=== PATIENT | female | born 1995 | race African-American/Black ===

== ENCOUNTER 2016-08-15 22:06 | Emergency (ER) | payer MEDICAID ==
[2016-08-15 23:31] LABS: Bilirubin Negative (Negative); Blood, Urine Moderate (Negative); Glucose, Urine (Dipstick) Negative (Negative); Ketone, Urine Negative (Negative); Nitrite Negative (Negative); Protein, Urine (Dipstick) Negative (Neg-Trace); Urobilinogen 0.2 mg/dL (0.2-1.0)
[2016-08-15] MEDS ORDERED: Lorazepam 1 MG TAB ONE (23:33)
[2016-08-15 23:37] LABS: Bacteria/HPF 1+ HPF (None Seen); WBC/HPF 0-3 HPF (0-3); Yeast-All Forms 2+ HPF (None Seen)
== END 2016-08-15 23:52 | disposition home or self-care (01) ==
LOC: NAV ERS 22:06
DX: F41.9 Anxiety disorder, unspecified (principal); N39.0 Urinary tract infection, site not specified; K21.9 Gastro-esophageal reflux disease without esophagitis; F17.210 Nicotine dependence, cigarettes, uncomplicated; Z79.899 Other long term (current) drug therapy
CPT/HCPCS: 81003; 81015; 81025; 93005

== ENCOUNTER 2016-10-16 23:21 | Emergency (ER) | payer MEDICAID | END 2016-10-17 00:05 | disposition home or self-care (01) | LOC: NAV ERS 23:21 | DX: R07.9 Chest pain, unspecified (principal); F41.9 Anxiety disorder, unspecified; K21.9 Gastro-esophageal reflux disease without esophagitis; E66.9 Obesity, unspecified; F32.9 Major depressive disorder, single episode, unspecified; F17.210 Nicotine dependence, cigarettes, uncomplicated; Z79.899 Other long term (current) drug therapy | CPT/HCPCS: 99283 ==

== ENCOUNTER 2017-02-24 14:15 | Emergency (ER) | payer MEDICAID, OTHER ==
[2017-02-24 15:08] LABS: Pregu Control Background? CLEAR/WHITE (CLR/WHITE); Pregu Control Bar Appear? YES (CONTROL BAR)
[2017-02-24 15:10] LABS: Pregnancy Test - Urine (BHCG) Negative (NEGATIVE)
[2017-02-24] MEDS ORDERED: Mag-Al Plus 1200 MG/1200 MG/120 MG/30 ML UDCUP ONE (15:13)
[2017-02-24] MEDS ORDERED: Lidocaine Viscous Sol 2% 15 ml UD Cup ONE (15:13)
== END 2017-02-24 16:14 | disposition home or self-care (01) ==
LOC: NAV ERS 14:15
DX: S27.818A Other injury of esophagus (thoracic part), initial encounter (principal); K21.0 Gastro-esophageal reflux disease with esophagitis; G43.909 Migraine, unspecified, not intractable, without status migrainosus; E66.09 Other obesity due to excess calories; F41.9 Anxiety disorder, unspecified; F32.9 Major depressive disorder, single episode, unspecified; F17.210 Nicotine dependence, cigarettes, uncomplicated
CPT/HCPCS: 81025; 99284

== ENCOUNTER 2017-03-07 21:59 | Emergency (ER) | payer OTHER ==
[2017-03-07] MEDS ORDERED: Famotidine 20 MG TAB ONE (22:21)
== END 2017-03-07 22:26 | disposition home or self-care (01) ==
LOC: NAV ERS 21:59
DX: K21.9 Gastro-esophageal reflux disease without esophagitis (principal); F32.9 Major depressive disorder, single episode, unspecified; F41.9 Anxiety disorder, unspecified; F17.210 Nicotine dependence, cigarettes, uncomplicated; Z79.899 Other long term (current) drug therapy
CPT/HCPCS: 99283

== ENCOUNTER 2017-03-09 21:47 | Emergency (ER) | payer OTHER ==
--- NOTE | 2017-03-09 23:06 | RAD ---
CHEST PA AND LATERAL 03/09/17 HISTORY: 21-year-old female with dyspnea, epigastric discomfort and heartburn. COMPARISON: 09/25/12. FINDINGS: The heart size is normal. The lungs are clear. IMPRESSION: No acute intrathoracic disease. POS: [facility]
--- NOTE | 2017-03-09 23:09 | RAD ---
SOFT TISSUE NECK TWO VIEWS: 03/09/17 HISTORY: 21-year-old female with patient describing that something is stuck in the neck for over a week with concern for foreign body. There is a normal appearing epiglottis. Subglottic trachea shows no evidence of transverse narrowing . No evidence for an opaque foreign body. No retropharyngeal soft tissue swelling. IMPRESSION: Unremarkable soft tissue neck. POS: [facility]
[2017-03-09] MEDS ORDERED: Sucralfate 1 GM TAB PO SCH (23:45)
== END 2017-03-10 00:07 | disposition home or self-care (01) ==
LOC: NAV ERS 21:47
DX: K20.9 Esophagitis, unspecified (principal); K21.9 Gastro-esophageal reflux disease without esophagitis; G43.909 Migraine, unspecified, not intractable, without status migrainosus; E66.9 Obesity, unspecified; F32.9 Major depressive disorder, single episode, unspecified; F41.9 Anxiety disorder, unspecified; F17.210 Nicotine dependence, cigarettes, uncomplicated; Z79.899 Other long term (current) drug therapy
CPT/HCPCS: 70360; 71020; 93005

== ENCOUNTER 2017-07-02 19:13 | Emergency (ER) | payer OTHER ==
[2017-07-02] MEDS ORDERED: Lidocaine Viscous Sol 2% 15 ml UD Cup ONE (20:18)
[2017-07-02] MEDS ORDERED: Mag-Al Plus 1200 MG/1200 MG/120 MG/30 ML UDCUP ONE (20:19)
== END 2017-07-02 21:30 | disposition home or self-care (01) ==
LOC: NAV ERS 19:13
DX: K29.00 Acute gastritis without bleeding (principal); K21.9 Gastro-esophageal reflux disease without esophagitis; G43.909 Migraine, unspecified, not intractable, without status migrainosus; E66.9 Obesity, unspecified; F41.9 Anxiety disorder, unspecified; F32.9 Major depressive disorder, single episode, unspecified; F17.210 Nicotine dependence, cigarettes, uncomplicated; Z79.899 Other long term (current) drug therapy
CPT/HCPCS: 93005

== ENCOUNTER 2017-07-11 18:47 | Emergency (ER) | payer OTHER ==
[2017-07-11] MEDS ORDERED: Famotidine 20 MG TAB ONE (19:11)
== END 2017-07-11 19:20 | disposition home or self-care (01) ==
LOC: NAV ERS 18:47
DX: K21.9 Gastro-esophageal reflux disease without esophagitis (principal); F41.9 Anxiety disorder, unspecified; G43.909 Migraine, unspecified, not intractable, without status migrainosus; E66.9 Obesity, unspecified; F32.9 Major depressive disorder, single episode, unspecified; F17.210 Nicotine dependence, cigarettes, uncomplicated; Z79.899 Other long term (current) drug therapy
CPT/HCPCS: 99283

== ENCOUNTER 2017-08-14 18:37 | Emergency (ER) | payer OTHER ==
[2017-08-14] MEDS ORDERED: Ibuprofen 800 MG TAB ONE (19:00)
== END 2017-08-14 19:52 | disposition home or self-care (01) ==
LOC: NAV ERS 18:37
DX: B34.9 Viral infection, unspecified (principal); K59.00 Constipation, unspecified; K21.9 Gastro-esophageal reflux disease without esophagitis; E66.01 Morbid (severe) obesity due to excess calories; F32.9 Major depressive disorder, single episode, unspecified; F41.9 Anxiety disorder, unspecified; G43.909 Migraine, unspecified, not intractable, without status migrainosus; F17.210 Nicotine dependence, cigarettes, uncomplicated; Z79.899 Other long term (current) drug therapy; Z71.6 Tobacco abuse counseling
CPT/HCPCS: 87081; 87430; 87804; 99406

== ENCOUNTER 2017-08-27 19:52 | Emergency (ER) | payer OTHER | END 2017-08-27 20:18 | disposition home or self-care (01) | LOC: NAV ERS 19:52 | DX: F41.9 Anxiety disorder, unspecified (principal); I10 Essential (primary) hypertension; K21.9 Gastro-esophageal reflux disease without esophagitis; G43.909 Migraine, unspecified, not intractable, without status migrainosus; F32.9 Major depressive disorder, single episode, unspecified; F17.210 Nicotine dependence, cigarettes, uncomplicated; Z79.899 Other long term (current) drug therapy | CPT/HCPCS: 99284 ==

== ENCOUNTER 2017-10-24 18:17 | Emergency (ER) | payer OTHER ==
[2017-10-24 19:10] LABS: Pregnancy Test - Urine (BHCG) Negative (Negative); Pregu Control Background? CLEAR/WHITE (CLR/WHITE); Pregu Control Bar Appear? YES (CONTROL BAR); Specific Gravity 1.028 (1.002-1.036)
[2017-10-24 19:15] LABS: Bilirubin Small (Negative); Blood, Urine Large (Negative); Glucose, Urine (Dipstick) Negative (Negative); Leukocyte Trace (Negative); Nitrite Negative (Negative); Protein, Urine (Dipstick) 100 mg/dL (Neg-Trace); Specific Gravity, Urine 1.025 (1.005-1.030)
[2017-10-24 19:19] LABS: Clarity Cloudy (Clear)
[2017-10-24 19:33] LABS: Bacteria/HPF 2+ HPF (None Seen); RBC/HPF GREATER THAN 50-TNTC HPF (0-3); WBC/HPF 0-3 HPF (0-3)
[2017-10-24] MEDS ORDERED: Ketorolac Tromethamine 30 MG/ML VIAL ONE (19:34)
[2017-10-24] MEDS ORDERED: Sodium Chloride 0.9% 1,000 ML ONE (19:34)
[2017-10-24] MEDS ORDERED: Ondansetron HCl/PF 4 MG/2 ML Vial ONE (19:34)
[2017-10-24] MEDS ORDERED: Acetaminophen 500 MG TAB ONE (19:34)
[2017-10-24 19:58] LABS: ALT (SGPT) 18 U/L (8-55); AST (SGOT) 18 U/L (5-34); Albumin 3.3 g/dL (3.5-5.0); Alkaline Phosphatase 73 U/L (40-150); Anion Gap 12 mmol/L (10-20); BUN (Urea Nitrogen) 8 mg/dL (7.0-18.7); Bilirubin, Total 0.4 mg/dL (0.2-1.2); Calc. Creatinine Clearance 0 mL/min (70-130); Calcium 8.4 mg/dL (7.8-10.44); Carbon Dioxide 24 mmol/L (22-29); Chloride 104 mmol/L (98-107); Estimated GFR-MDRD Greater than 90; Globulin 3.6 g/dL (2.4-3.5); Glucose 92 mg/dL (70-105); Potassium 3.5 mmol/L (3.5-5.1); Protein, Total 6.9 g/dL (6.0-8.3); Sodium 136 mmol/L (136-145)
[2017-10-24 20:01] LABS: #Basophils 0.1 thou/uL (0.0-0.2); #Lymphocytes 0.9 thou/uL (1.20-3.40); #Monocytes 0.3 thou/uL (0.11-0.59); %Basophils 1.4 % (0.0-1.0); %Eosinophils 0.2 % (0.0-10.0); %Lymphocytes 16.3 % (21.0-51.0); %Monocytes 6.3 % (0.0-10.0); %Neutrophils 75.8 % (42.0-75.0); Hemoglobin 11.5 g/dL (12.0-16.0); Mean Corpuscular HGB CONC 30.4 g/dL (32.0-36.0); Mean Corpuscular Volume 78.7 fl (81.0-99.0); Platelet Count 408 thou/uL (130-400); RBC Distribution Width 13.5 % (11.5-14.5); Red Blood Cell (RBC) Count 4.79 mill/uL (4.20-5.40); White Blood Cell (WBC) Count 5.3 thou/uL (4.8-10.8)
[2017-10-24] MEDS ORDERED: Metoclopramide HCl 10 MG/2 ML VIAL ONE (20:46)
--- NOTE | 2017-10-24 20:48 | RAD ---
CHEST TWO VIEWS: 10/24/17 COMPARISON: 03/09/17 HISTORY: Loss of consciousness. FINDINGS: lateral view is suboptimal due to patient body habitus. Based on the PA projection, no consolidation or mass. No pleural effusion or pneumothorax Normal cardiac silhouette. IMPRESSION: No acute cardiopulmonary process. Suboptimal lateral projection. POS: [facility]
== END 2017-10-24 21:18 | disposition home or self-care (01) ==
LOC: NAV ERS 18:17
DX: E86.0 Dehydration (principal); B34.9 Viral infection, unspecified; K21.9 Gastro-esophageal reflux disease without esophagitis; G43.909 Migraine, unspecified, not intractable, without status migrainosus; F41.9 Anxiety disorder, unspecified; F17.210 Nicotine dependence, cigarettes, uncomplicated; Z79.899 Other long term (current) drug therapy
CPT/HCPCS: 71046; 80053; 81003; 81015; 81025; 83605; 85025; 87077; 87086; 87186; 87804; 93005; 96361; 96365; 96375; J1885; J2405; J2765; J7050

== ENCOUNTER 2017-10-28 03:50 | Emergency (ER) | payer OTHER ==
[2017-10-28] MEDS ORDERED: Lidocaine Viscous Sol 2% 15 ml UD Cup ONE (04:21)
[2017-10-28] MEDS ORDERED: Mag-Al Plus 1200 MG/1200 MG/120 MG/30 ML UDCUP ONE (04:21)
[2017-10-28] MEDS ORDERED: Acetaminophen 500 MG TAB ONE (04:42)
== END 2017-10-28 04:47 | disposition home or self-care (01) ==
LOC: NAV ERS 03:50
DX: K21.9 Gastro-esophageal reflux disease without esophagitis (principal); N39.0 Urinary tract infection, site not specified; E66.9 Obesity, unspecified; G43.909 Migraine, unspecified, not intractable, without status migrainosus; F41.9 Anxiety disorder, unspecified; F32.9 Major depressive disorder, single episode, unspecified; F17.210 Nicotine dependence, cigarettes, uncomplicated; Z79.899 Other long term (current) drug therapy
CPT/HCPCS: 99406

== ENCOUNTER 2017-12-04 11:50 | Emergency (ER) | payer OTHER ==
[2017-12-04] MEDS ORDERED: diphenhydrAMINE 50 MG/ML VIAL ONE (12:39)
[2017-12-04] MEDS ORDERED: Metoclopramide HCl 10 MG/2 ML VIAL ONE (12:39)
[2017-12-04] MEDS ORDERED: Sodium Chloride 0.9% 1,000 ML ONE (12:39)
[2017-12-04 12:54] LABS: #Basophils 0.1 thou/uL (0.0-0.2); #Lymphocytes 0.5 thou/uL (1.20-3.40); #Monocytes 0.1 thou/uL (0.11-0.59); #Neutrophils 1.4 thou/uL (1.40-6.50); %Basophils 3.3 % (0.0-1.0); %Lymphocytes 9.7 % (21.0-51.0); %Monocytes 2.5 % (0.0-10.0); Hemoglobin 10.7 g/dL (12.0-16.0); Mean Corpuscular HGB CONC 30.1 g/dL (32.0-36.0); Mean Corpuscular Hemoglobin 23.6 pg (27.0-31.0); Mean Corpuscular Volume 78.4 fl (81.0-99.0); Mean Platelet Volume 6.5 fL (7.4-10.4); Platelet Count 396 thou/uL (130-400); RBC Distribution Width 15.1 % (11.5-14.5); Red Blood Cell (RBC) Count 4.55 mill/uL (4.20-5.40); White Blood Cell (WBC) Count 5.4 thou/uL (4.8-10.8)
[2017-12-04 13:06] LABS: Troponin I Less than 0.010 ng/mL (< 0.028)
[2017-12-04 13:16] LABS: CKMB 0.7 ng/mL (0-6.6)
--- NOTE | 2017-12-04 13:29 | RAD ---
PA AND LATERAL VIEWS OF THE CHEST: HISTORY: Chest pain. COMPARISON: 10/24/2017 FINDINGS: The heart size is normal. No focal areas of consolidation, pneumothorax, or pleural effusions. No a cute osseous abnormality are seen. IMPRESSION: No radiographic evidence of acute cardiopulmonary process. POS: [facility]
[2017-12-04 13:31] LABS: ALT (SGPT) 15 U/L (8-55); AST (SGOT) 13 U/L (5-34); Albumin 3.5 g/dL (3.5-5.0); Alkaline Phosphatase 68 U/L (40-150); Anion Gap 12 mmol/L (10-20); BUN (Urea Nitrogen) 6 mg/dL (7.0-18.7); Bilirubin, Total 0.5 mg/dL (0.2-1.2); Calc. Creatinine Clearance 0 mL/min (70-130); Carbon Dioxide 25 mmol/L (22-29); Chloride 105 mmol/L (98-107); Estimated GFR-MDRD Greater than 90; Glucose 83 mg/dL (70-105); Potassium 3.8 mmol/L (3.5-5.1); Protein, Total 7.5 g/dL (6.0-8.3); Sodium 138 mmol/L (136-145)
[2017-12-04 16:03] LABS: Troponin I Less than 0.010 ng/mL (< 0.028)
== END 2017-12-04 16:30 | disposition home or self-care (01) ==
LOC: NAV ERS 11:50
DX: R07.89 Other chest pain (principal); F41.9 Anxiety disorder, unspecified; G43.909 Migraine, unspecified, not intractable, without status migrainosus; E66.9 Obesity, unspecified; K21.9 Gastro-esophageal reflux disease without esophagitis; F32.9 Major depressive disorder, single episode, unspecified; F17.210 Nicotine dependence, cigarettes, uncomplicated; Z79.899 Other long term (current) drug therapy
CPT/HCPCS: 71046; 80053; 82553; 84484; 85025; 85379; 93005; 94760; 96365; 96375; J1200; J2765; J7050

== ENCOUNTER 2017-12-19 22:19 | Emergency (ER) | payer OTHER ==
[2017-12-19] MEDS ORDERED: Adacel (T-DAP) 0.5 ML VIAL ONE (22:33)
== END 2017-12-19 22:50 | disposition home or self-care (01) ==
LOC: NAV ERS 22:19
DX: S90.474A Other superficial bite of right lesser toe(s), initial encounter (principal); E66.9 Obesity, unspecified; K21.9 Gastro-esophageal reflux disease without esophagitis; G43.909 Migraine, unspecified, not intractable, without status migrainosus; F41.9 Anxiety disorder, unspecified; F32.9 Major depressive disorder, single episode, unspecified; F17.210 Nicotine dependence, cigarettes, uncomplicated; Z79.899 Other long term (current) drug therapy; W59.11XA Bitten by nonvenomous snake, initial encounter
CPT/HCPCS: 90471; 90715

== ENCOUNTER 2017-12-25 00:56 | Emergency (ER) | payer OTHER ==
[2017-12-25] MEDS ORDERED: Lidocaine Viscous Sol 2% 15 ml UD Cup ONE (01:31)
[2017-12-25] MEDS ORDERED: Mag-Al Plus 1200 MG/1200 MG/120 MG/30 ML UDCUP ONE (01:32)
== END 2017-12-25 01:43 | disposition home or self-care (01) ==
LOC: NAV ERS 00:56
DX: K29.00 Acute gastritis without bleeding (principal); E66.9 Obesity, unspecified; K21.9 Gastro-esophageal reflux disease without esophagitis; G43.909 Migraine, unspecified, not intractable, without status migrainosus; F41.9 Anxiety disorder, unspecified; F32.9 Major depressive disorder, single episode, unspecified; F17.200 Nicotine dependence, unspecified, uncomplicated; Z79.899 Other long term (current) drug therapy
CPT/HCPCS: 99283

== ENCOUNTER 2018-01-20 23:56 | Emergency (ER) | payer OTHER ==
[2018-01-21] MEDS ORDERED: Ibuprofen 800 MG TAB ONE (00:07)
== END 2018-01-21 00:22 | disposition home or self-care (01) ==
LOC: NAV ERS 23:56
DX: S60.222A Contusion of left hand, initial encounter (principal); S60.221A Contusion of right hand, initial encounter; K21.9 Gastro-esophageal reflux disease without esophagitis; G43.909 Migraine, unspecified, not intractable, without status migrainosus; E66.9 Obesity, unspecified; F41.9 Anxiety disorder, unspecified; F32.9 Major depressive disorder, single episode, unspecified; W20.8XXA Other cause of strike by thrown, projected or falling object, initial encounter
CPT/HCPCS: 99283

== ENCOUNTER 2018-03-06 18:17 | Emergency (ER) | payer OTHER ==
[2018-03-06] MEDS ORDERED: Ondansetron ODT 4 MG TAB ONE (18:56)
[2018-03-06] MEDS ORDERED: methylPREDNISolone Acetate 40 mg/ml Vial ONE ×2 (18:56→19:03)
[2018-03-06 19:17] LABS: CKMB 0.3 ng/mL (0-6.6); Troponin I Less than 0.010 ng/mL (< 0.028)
[2018-03-06 19:22] LABS: ALT (SGPT) 12 U/L (8-55); AST (SGOT) 14 U/L (5-34); Albumin 3.7 g/dL (3.5-5.0); Alkaline Phosphatase 88 U/L (40-150); Anion Gap 15 mmol/L (10-20); BUN (Urea Nitrogen) 9 mg/dL (7.0-18.7); Bilirubin, Total 0.5 mg/dL (0.2-1.2); CK (CPK) 67 U/L (29-168); Calc. Creatinine Clearance 0 mL/min (70-130); Calcium 9.6 mg/dL (7.8-10.44); Carbon Dioxide 23 mmol/L (22-29); Chloride 105 mmol/L (98-107); Estimated GFR-MDRD Greater than 90; Globulin 4.3 g/dL (2.4-3.5); Glucose 86 mg/dL (70-105); Potassium 4.1 mmol/L (3.5-5.1); Sodium 139 mmol/L (136-145)
[2018-03-06 19:30] LABS: #Basophils 0.1 thou/uL (0.0-0.2); #Eosinphils 0.1 thou/uL (0.0-0.7); #Lymphocytes 1.5 thou/uL (1.20-3.40); #Monocytes 0.3 thou/uL (0.11-0.59); #Neutrophils 3.2 thou/uL (1.40-6.50); %Basophils 1.3 % (0.0-1.0); %Eosinophils 1.7 % (0.0-10.0); %Lymphocytes 28.9 % (21.0-51.0); %Monocytes 5.8 % (0.0-10.0); %Neutrophils 62.3 % (42.0-75.0); Hemoglobin 11.9 g/dL (12.0-16.0); Mean Corpuscular HGB CONC 30.4 g/dL (32.0-36.0); Mean Corpuscular Hemoglobin 24.7 pg (27.0-31.0); Mean Corpuscular Volume 81.2 fL (78.0-98.0); Mean Platelet Volume 6.3 fL (7.4-10.4); Platelet Count 418 thou/uL (130-400); RBC Distribution Width 14.1 % (11.5-14.5); Red Blood Cell (RBC) Count 4.83 mill/uL (4.20-5.40); White Blood Cell (WBC) Count 5.2 thou/uL (4.8-10.8)
--- NOTE | 2018-03-06 19:47 | RAD ---
TWO VIEWS OF THE CHEST: 03/06/18 COMPARISON: 12/04/17 HISTORY: Mid chest pain with dizziness and nausea. FINDINGS: Two views of the chest show normal sized cardiomediastinal silhouette. There is no evidence of consol idation, mass, or pleural effusion. The bones are unremarkable. IMPRESSION: No evidence of acute cardiopulmonary disease. POS: [facility]
== END 2018-03-06 19:47 | disposition home or self-care (01) ==
LOC: NAV ERS 18:17
DX: M94.0 Chondrocostal junction syndrome [Tietze] (principal); F32.9 Major depressive disorder, single episode, unspecified; F41.9 Anxiety disorder, unspecified; J45.909 Unspecified asthma, uncomplicated; K21.9 Gastro-esophageal reflux disease without esophagitis; G43.909 Migraine, unspecified, not intractable, without status migrainosus; Z87.891 Personal history of nicotine dependence; Z79.899 Other long term (current) drug therapy
CPT/HCPCS: 71046; 80053; 82553; 84484; 85025; 93005; 96372; J1030; Q0162

== ENCOUNTER 2018-05-19 22:55 | Emergency (ER) | payer OTHER ==
[2018-05-19] MEDS ORDERED: Ibuprofen 800 MG TAB ONE (23:18)
[2018-05-19] MEDS ORDERED: Ondansetron ODT 4 MG TAB ONE (23:18)
== END 2018-05-19 23:32 | disposition home or self-care (01) ==
LOC: NAV ERS 22:55
DX: F41.9 Anxiety disorder, unspecified (principal); I10 Essential (primary) hypertension; K21.9 Gastro-esophageal reflux disease without esophagitis; G43.909 Migraine, unspecified, not intractable, without status migrainosus; J45.909 Unspecified asthma, uncomplicated; F32.9 Major depressive disorder, single episode, unspecified; Z87.891 Personal history of nicotine dependence; Z79.899 Other long term (current) drug therapy
CPT/HCPCS: 93005; Q0162

== ENCOUNTER 2018-06-29 20:10 | Emergency (ER) | payer OTHER ==
[2018-06-29] MEDS ORDERED: hydrOXYzine 25 MG TAB ONE (20:32)
[2018-06-29] MEDS ORDERED: Ondansetron ODT 4 MG TAB ONE (20:32)
--- NOTE | 2018-06-29 20:52 | RAD ---
TWO VIEWS CHEST: 06/29/18 COMPARISON: 03/26/18 HISTORY: Pain. FINDINGS: Normal cardiac silhouette. Lungs and pleural spaces are clear. No pneumothorax or osseous abnormaliti es. IMPRESSION: No acute cardiopulmonary process. POS: [facility]
== END 2018-06-29 21:00 | disposition home or self-care (01) ==
LOC: NAV ERS 20:10
DX: F41.9 Anxiety disorder, unspecified (principal); G43.909 Migraine, unspecified, not intractable, without status migrainosus; J45.909 Unspecified asthma, uncomplicated; K21.9 Gastro-esophageal reflux disease without esophagitis; F32.9 Major depressive disorder, single episode, unspecified; Z87.891 Personal history of nicotine dependence; Z79.51 Long term (current) use of inhaled steroids; Z79.899 Other long term (current) drug therapy
CPT/HCPCS: 71046; 93005; Q0162

== ENCOUNTER 2018-10-02 11:20 | Emergency (ER) | payer OTHER ==
[2018-10-02] MEDS ORDERED: Acetaminophen 500 MG TAB ONE (11:35)
== END 2018-10-02 12:00 | disposition home or self-care (01) ==
LOC: NAV ERS 11:20
DX: S00.83XA Contusion of other part of head, initial encounter (principal); K21.9 Gastro-esophageal reflux disease without esophagitis; G43.909 Migraine, unspecified, not intractable, without status migrainosus; J45.909 Unspecified asthma, uncomplicated; F41.9 Anxiety disorder, unspecified; F32.9 Major depressive disorder, single episode, unspecified; F17.210 Nicotine dependence, cigarettes, uncomplicated; Z79.899 Other long term (current) drug therapy; Z79.51 Long term (current) use of inhaled steroids; Y04.0XXA Assault by unarmed brawl or fight, initial encounter
CPT/HCPCS: 99283

== ENCOUNTER 2019-01-11 13:50 | Emergency (ER) | payer OTHER ==
[2019-01-11] MEDS ORDERED: Ondansetron ODT 4 MG TAB ONE (14:10)
== END 2019-01-11 14:13 | disposition home or self-care (01) ==
LOC: NAV ERS 13:50
DX: F41.9 Anxiety disorder, unspecified (principal); J45.909 Unspecified asthma, uncomplicated; G43.909 Migraine, unspecified, not intractable, without status migrainosus; K21.9 Gastro-esophageal reflux disease without esophagitis; F32.9 Major depressive disorder, single episode, unspecified; F17.210 Nicotine dependence, cigarettes, uncomplicated; Z79.899 Other long term (current) drug therapy
CPT/HCPCS: 99283; Q0162

== ENCOUNTER 2019-05-06 15:11 | Emergency (ER) | payer OTHER ==
[2019-05-06] MEDS ORDERED: Acetaminophen 500 MG TAB ONE (15:22)
[2019-05-06] MEDS ORDERED: Ondansetron ODT 4 MG TAB ONE (15:22)
--- NOTE | 2019-05-06 16:00 | RAD ---
PA AND LATERAL VIEWS OF THE CHEST: 05/06/19 HISTORY: Flu-like symptoms, asthma, cold. COMPARISON: Comparison made to exam of 06/29/18. The heart size is normal. The lungs are expanded without focal areas of consolidation, pneumothoraces , or pleural effusions. No acute osseous abnormalities are seen. IMPRESSION: No radiographic evidence of acute cardiopulmonary process. POS: [facility]
== END 2019-05-06 17:25 | disposition home or self-care (01) ==
LOC: NAV ERS 15:11
DX: B34.9 Viral infection, unspecified (principal); F41.9 Anxiety disorder, unspecified; F32.9 Major depressive disorder, single episode, unspecified; K21.9 Gastro-esophageal reflux disease without esophagitis; J45.909 Unspecified asthma, uncomplicated; F17.210 Nicotine dependence, cigarettes, uncomplicated; Z79.51 Long term (current) use of inhaled steroids; Z79.899 Other long term (current) drug therapy
CPT/HCPCS: 71046; 87804; 94640; J7620; Q0162

== ENCOUNTER 2020-01-01 15:42 | Emergency (ER) | payer OTHER | END 2020-01-01 15:58 | disposition home or self-care (01) | LOC: NAV ERS 15:42 | DX: K14.8 Other diseases of tongue (principal); K21.9 Gastro-esophageal reflux disease without esophagitis; J45.909 Unspecified asthma, uncomplicated; F41.9 Anxiety disorder, unspecified; F32.9 Major depressive disorder, single episode, unspecified; F17.210 Nicotine dependence, cigarettes, uncomplicated; Z79.899 Other long term (current) drug therapy; Z79.51 Long term (current) use of inhaled steroids | CPT/HCPCS: 99281 ==

== ENCOUNTER 2020-08-06 11:20 | Emergency (ER) | payer OTHER ==
[2020-08-06] MEDS ORDERED: Bacitracin 1 PK ONE (12:34)
== END 2020-08-06 12:35 | disposition home or self-care (01) ==
LOC: NAV ERS 11:20
DX: L03.116 Cellulitis of left lower limb (principal); G43.909 Migraine, unspecified, not intractable, without status migrainosus; K21.9 Gastro-esophageal reflux disease without esophagitis; F17.210 Nicotine dependence, cigarettes, uncomplicated; J45.909 Unspecified asthma, uncomplicated; Z79.899 Other long term (current) drug therapy
CPT/HCPCS: 36416; 99283

== ENCOUNTER 2020-10-04 23:19 | Emergency (ER) | payer OTHER | END 2020-10-05 00:15 | disposition home or self-care (01) | LOC: NAV ERS 23:19 | DX: L97.321 Non-pressure chronic ulcer of left ankle limited to breakdown of skin (principal); K21.9 Gastro-esophageal reflux disease without esophagitis; G43.909 Migraine, unspecified, not intractable, without status migrainosus; F17.210 Nicotine dependence, cigarettes, uncomplicated | CPT/HCPCS: 99281 ==

== ENCOUNTER 2021-02-22 18:49 | Emergency (ER) | payer OTHER | END 2021-02-22 20:30 | disposition home or self-care (01) | LOC: NAV ERS 18:49 | DX: J06.9 Acute upper respiratory infection, unspecified (principal); Z20.822 Contact with and (suspected) exposure to COVID-19; K21.9 Gastro-esophageal reflux disease without esophagitis; J45.909 Unspecified asthma, uncomplicated; G43.909 Migraine, unspecified, not intractable, without status migrainosus | CPT/HCPCS: 99283 ==

== ENCOUNTER 2021-03-08 04:54 | Emergency (ER) | payer OTHER ==
[2021-03-08] MEDS ORDERED: Ketorolac Tromethamine 60 MG/2 ML VIAL ONE (05:32)
== END 2021-03-08 05:45 | disposition home or self-care (01) ==
LOC: NAV ERS 04:54
DX: R09.1 Pleurisy (principal); K21.9 Gastro-esophageal reflux disease without esophagitis; G43.909 Migraine, unspecified, not intractable, without status migrainosus; J45.909 Unspecified asthma, uncomplicated; F17.210 Nicotine dependence, cigarettes, uncomplicated
CPT/HCPCS: 96372; 99284; J1885

== ENCOUNTER 2021-04-03 20:48 | Emergency (ER) | payer OTHER ==
[2021-04-03] MEDS ORDERED: Ondansetron PF 4 MG/2 ML Vial ONE (21:49)
[2021-04-03] MEDS ORDERED: Adenosine 6 MG/2 ML VIAL ONE (21:49)
[2021-04-03 22:25] LABS: Hemoglobin 11.7 g/dL (12.0-16.0); Mean Corpuscular HGB CONC 31.2 g/dL (32.0-36.0); Mean Corpuscular Hemoglobin 25.6 pg (27.0-31.0); Mean Platelet Volume 5.9 fL (7.4-10.4); Platelet Count 511 thou/uL (130-400); RBC Distribution Width 14.2 % (11.5-14.5); Red Blood Cell (RBC) Count 4.55 mill/uL (4.20-5.40); White Blood Cell (WBC) Count 11.4 thou/uL (4.8-10.8)
[2021-04-03] MEDS ORDERED: Sodium Chloride 0.9% 1,000 ML ONE (22:28)
[2021-04-03 22:30] LABS: Band 6 % (5-11); Eosinophils 9 % (0-10); Lymphocytes 24 % (21-51); MDiff Complete? YES; Metamyelocyte 3 % (0-0); Monocytes 3 % (0-10); Neutrophil 55 % (42-75); Platelet Morphology Comment Appears Increased; RBC Morphology Normal
[2021-04-03 22:34] LABS: ALT (SGPT) 20 U/L (8-55); AST (SGOT) 21 U/L (5-34); Albumin 3.5 g/dL (3.5-5.0); Alkaline Phosphatase 103 U/L (40-110); Anion Gap 13 mmol/L (10-20); BUN (Urea Nitrogen) 12 mg/dL (7.0-18.7); Bilirubin, Total 0.3 mg/dL (0.2-1.2); Calc. Creatinine Clearance 0 mL/min (70-130); Calcium 9.4 mg/dL (7.8-10.44); Carbon Dioxide 25 mmol/L (22-29); Chloride 105 mmol/L (98-107); Globulin 4.7 g/dL (2.4-3.5); Glucose 103 mg/dL (70-105); Lipase 40 U/L (8-78); Potassium 3.8 mmol/L (3.5-5.1); Protein, Total 8.2 g/dL (6.0-8.3); Sodium 139 mmol/L (136-145)
[2021-04-03 22:52] LABS: CKMB 1.7 ng/mL (0-6.6)
[2021-04-03] MEDS ORDERED: Enoxaparin Sodium 120 MG/0.8 ML SYRINGE SC ONE (22:53)
[2021-04-03 23:44] LABS: Bilirubin Negative (Negative); Blood, Urine Small (Negative); Clarity Clear (Clear); Glucose, Urine (Dipstick) Negative (Negative); Ketone, Urine Negative (Negative); Leukocyte Moderate (Negative); Nitrite Negative (Negative); Protein, Urine (Dipstick) Negative (Neg-Trace); Urobilinogen 0.2 mg/dL (Less than 2); pH, Urine 6.5 (5.0-9.0)
[2021-04-03 23:49] LABS: RBC/HPF 0-3 HPF (0-3)
[2021-04-03 23:50] LABS: Bacteria/HPF 1+ HPF (None Seen); Squamous Epithelial 0-3 HPF (0-3)
[2021-04-03 23:52] LABS: Amphetamine Not Detected (NotDetected); Barbiturates Screen Not Detected (NotDetected); Benzodiazepine Screen Not Detected (NotDetected); Cocaine Metabolite Screen Not Detected (NotDetected); Medtox Control Line Valid? VALID (VALID); Methadone Not Detected (NotDetected); Methamphetamine Not Detected (NotDetected); Opiate Screen Not Detected (NotDetected); Oxycodone Screen Not Detected (NotDetected); Phencyclidine (PCP) Not Detected (NotDetected); THC/Cannabinoid Screen Not Detected (NotDetected); Tricyclic Screen Not Detected (NotDetected)
[2021-04-04 00:37] LABS: SARS-CoV-2 NAA Rapid Test Not Detected (NotDetected)
[2021-04-04] MEDS ORDERED: Metoprolol Tartrate 25 MG TAB ONE (01:05)
== END 2021-04-04 01:25 | disposition short-term general hospital (02) ==
LOC: NAV ERS 20:48
DX: I47.1 Supraventricular tachycardia (principal); R79.89 Other specified abnormal findings of blood chemistry; E66.01 Morbid (severe) obesity due to excess calories; Z20.822 Contact with and (suspected) exposure to COVID-19; G43.909 Migraine, unspecified, not intractable, without status migrainosus; J45.909 Unspecified asthma, uncomplicated; F17.210 Nicotine dependence, cigarettes, uncomplicated; Z79.899 Other long term (current) drug therapy
CPT/HCPCS: 36415; 71045; 80053; 80306; 81003; 81015; 82553; 83690; 84443; 84484; 85025; 85379; 93005; 96374; 96375; J0153; J1650; J2405; J7050; U0002

== ENCOUNTER 2021-04-25 17:20 | Emergency (ER) | payer OTHER | END 2021-04-25 18:00 | disposition home or self-care (01) | LOC: NAV ERS 17:20 | DX: F41.9 Anxiety disorder, unspecified (principal); K21.9 Gastro-esophageal reflux disease without esophagitis; J45.909 Unspecified asthma, uncomplicated; I47.1 Supraventricular tachycardia; Z87.891 Personal history of nicotine dependence; Z79.899 Other long term (current) drug therapy | CPT/HCPCS: 93005 ==

== ENCOUNTER 2021-05-18 11:43 | Emergency (ER) | payer OTHER | END 2021-05-18 12:15 | disposition home or self-care (01) | LOC: NAV ERS 11:43 | DX: J30.9 Allergic rhinitis, unspecified (principal); R09.82 Postnasal drip; K21.9 Gastro-esophageal reflux disease without esophagitis; Z87.891 Personal history of nicotine dependence; Z79.899 Other long term (current) drug therapy | CPT/HCPCS: 99283 ==

== ENCOUNTER 2021-07-13 12:57 | Emergency (ER) | payer OTHER | END 2021-07-13 13:50 | disposition home or self-care (01) | LOC: NAV ERS 12:57 | DX: R00.2 Palpitations (principal); K21.9 Gastro-esophageal reflux disease without esophagitis; G43.909 Migraine, unspecified, not intractable, without status migrainosus; Z79.899 Other long term (current) drug therapy | CPT/HCPCS: 99284 ==

== ENCOUNTER 2021-07-20 22:35 | Emergency (ER) | payer OTHER ==
[2021-07-20 22:57] LABS: #Eosinphils 0.3 thou/uL (0.0-0.7); #Lymphocytes 2.3 thou/uL (1.20-3.40); #Monocytes 0.6 thou/uL (0.11-0.59); %Basophils 0.4 % (0.0-1.0); %Monocytes 6.6 % (0.0-10.0); Hemoglobin 11.1 g/dL (12.0-16.0); Manual Diff?? NO; Mean Corpuscular HGB CONC 30.5 g/dL (32.0-36.0); Mean Corpuscular Hemoglobin 24.1 pg (27.0-31.0); Mean Platelet Volume 5.4 fL (7.4-10.4); Platelet Count 546 thou/uL (130-400); RBC Distribution Width 14.6 % (11.5-14.5); Red Blood Cell (RBC) Count 4.61 mill/uL (4.20-5.40); White Blood Cell (WBC) Count 9.2 thou/uL (4.8-10.8)
[2021-07-20 23:16] LABS: ALT (SGPT) 10 U/L (8-55); AST (SGOT) 10 U/L (5-34); Albumin 3.7 g/dL (3.5-5.0); Alkaline Phosphatase 84 U/L (40-110); Anion Gap 14 mmol/L (10-20); BUN (Urea Nitrogen) 11 mg/dL (7.0-18.7); Bilirubin, Total 0.2 mg/dL (0.2-1.2); Calc. Creatinine Clearance 0 mL/min (70-130); Calcium 9.1 mg/dL (7.8-10.44); Carbon Dioxide 25 mmol/L (22-29); Chloride 103 mmol/L (98-107); Globulin 4.4 g/dL (2.4-3.5); Glucose 93 mg/dL (70-105); Lipase 33 U/L (8-78); Potassium 3.4 mmol/L (3.5-5.1); Protein, Total 8.1 g/dL (6.0-8.3); Sodium 139 mmol/L (136-145)
[2021-07-20 23:25] LABS: Amphetamine Not Detected (NotDetected); Barbiturates Screen Not Detected (NotDetected); Benzodiazepine Screen Not Detected (NotDetected); Cocaine Metabolite Screen Not Detected (NotDetected); Medtox Control Line Valid? VALID (VALID); Methadone Not Detected (NotDetected); Methamphetamine Not Detected (NotDetected); Opiate Screen Not Detected (NotDetected); Oxycodone Screen Not Detected (NotDetected); Phencyclidine (PCP) Not Detected (NotDetected); THC/Cannabinoid Screen Not Detected (NotDetected); Tricyclic Screen Not Detected (NotDetected)
[2021-07-20 23:25] LABS: BHCG - Serum Negative (NEGATIVE); Pregs Control Bar Appear? YES (CONTROL BAR)
[2021-07-20 23:53] LABS: Thyroid Stimulating Hormone 1.3018 uIU/mL (0.35-4.94)
== END 2021-07-20 23:52 | disposition home or self-care (01) ==
LOC: NAV ERS 22:35
DX: R00.0 Tachycardia, unspecified (principal); K21.9 Gastro-esophageal reflux disease without esophagitis; J45.909 Unspecified asthma, uncomplicated; G43.909 Migraine, unspecified, not intractable, without status migrainosus; Z79.899 Other long term (current) drug therapy
CPT/HCPCS: 71046; 80053; 80306; 83690; 84443; 84484; 84703; 85025; 93005

== ENCOUNTER 2021-09-14 18:07 | Emergency (ER) | payer OTHER ==
[2021-09-14 18:59] LABS: #Basophils 0.1 thou/uL (0.0-0.2); #Eosinphils 0.1 thou/uL (0.0-0.7); #Lymphocytes 1.6 thou/uL (1.20-3.40); #Monocytes 0.5 thou/uL (0.11-0.59); #Neutrophils 7.6 thou/uL (1.40-6.50); %Basophils 0.6 % (0.0-1.0); %Eosinophils 1.5 % (0.0-10.0); %Lymphocytes 15.9 % (21.0-51.0); %Monocytes 4.6 % (0.0-10.0); %Neutrophils 77.4 % (42.0-75.0); Hemoglobin 11.1 g/dL (12.0-16.0); Mean Corpuscular HGB CONC 30.5 g/dL (32.0-36.0); Mean Corpuscular Hemoglobin 24.1 pg (27.0-31.0); Mean Corpuscular Volume 79.3 fL (78.0-98.0); Mean Platelet Volume 5.5 fL (7.4-10.4); Platelet Count 516 thou/uL (130-400); RBC Distribution Width 14.7 % (11.5-14.5); Red Blood Cell (RBC) Count 4.61 mill/uL (4.20-5.40); White Blood Cell (WBC) Count 9.9 thou/uL (4.8-10.8)
[2021-09-14 19:18] LABS: ALT (SGPT) 11 U/L (8-55); AST (SGOT) 12 U/L (5-34); Albumin 3.8 g/dL (3.5-5.0); Alkaline Phosphatase 83 U/L (40-110); Anion Gap 14 mmol/L (10-20); BUN (Urea Nitrogen) 9 mg/dL (7.0-18.7); Bilirubin, Total 0.4 mg/dL (0.2-1.2); Calc. Creatinine Clearance 0 mL/min (70-130); Carbon Dioxide 25 mmol/L (22-29); Chloride 105 mmol/L (98-107); Globulin 3.9 g/dL (2.4-3.5); Glucose 112 mg/dL (70-105); Protein, Total 7.7 g/dL (6.0-8.3); Sodium 140 mmol/L (136-145)
[2021-09-14] MEDS ORDERED: Ondansetron ODT 4 MG TAB ONE (19:28)
== END 2021-09-14 19:40 | disposition home or self-care (01) ==
LOC: NAV ERS 18:07
DX: R07.89 Other chest pain (principal); R11.0 Nausea; R00.0 Tachycardia, unspecified; K21.9 Gastro-esophageal reflux disease without esophagitis; J45.909 Unspecified asthma, uncomplicated; Z87.891 Personal history of nicotine dependence; Z79.899 Other long term (current) drug therapy
CPT/HCPCS: 80053; 84443; 84484; 85025; 93005; Q0162

== ENCOUNTER 2022-01-16 15:46 | Emergency (ER) | payer OTHER ==
[2022-01-16 17:21] LABS: #Basophils 0.1 thou/uL (0.0-0.2); #Eosinphils 0.2 thou/uL (0.0-0.7); #Lymphocytes 1.4 thou/uL (1.20-3.40); #Monocytes 0.5 thou/uL (0.11-0.59); #Neutrophils 4.5 thou/uL (1.40-6.50); %Basophils 0.8 % (0.0-1.0); %Eosinophils 2.9 % (0.0-10.0); %Lymphocytes 21.4 % (21.0-51.0); %Monocytes 7.7 % (0.0-10.0); %Neutrophils 67.2 % (42.0-75.0); Hemoglobin 10.7 g/dL (12.0-16.0); Mean Corpuscular HGB CONC 28.5 g/dL (32.0-36.0); Mean Corpuscular Hemoglobin 23.2 pg (27.0-31.0); Mean Corpuscular Volume 81.6 fL (78.0-98.0); Mean Platelet Volume 6.7 fL (7.4-10.4); Platelet Count 453 thou/uL (130-400); RBC Distribution Width 15.4 % (11.5-14.5); Red Blood Cell (RBC) Count 4.63 mill/uL (4.20-5.40); White Blood Cell (WBC) Count 6.7 thou/uL (4.8-10.8)
[2022-01-16 17:34] LABS: ALT (SGPT) 12 U/L (8-55); AST (SGOT) 13 U/L (5-34); Albumin 3.5 g/dL (3.5-5.0); Alkaline Phosphatase 90 U/L (40-110); Anion Gap 14 mmol/L (10-20); BUN (Urea Nitrogen) 11 mg/dL (7.0-18.7); Bilirubin, Total 0.3 mg/dL (0.2-1.2); Calc. Creatinine Clearance 0 mL/min (70-130); Carbon Dioxide 25 mmol/L (22-29); Chloride 103 mmol/L (98-107); Estimated GFR 93; Globulin 4.4 g/dL (2.4-3.5); Glucose 84 mg/dL (70-105); Potassium 3.8 mmol/L (3.5-5.1); Protein, Total 7.9 g/dL (6.0-8.3); Sodium 138 mmol/L (136-145)
== END 2022-01-16 18:35 | disposition home or self-care (01) ==
LOC: NAV ERS 15:46
DX: D64.9 Anemia, unspecified (principal); K21.9 Gastro-esophageal reflux disease without esophagitis; D75.839 Thrombocytosis, unspecified; G43.909 Migraine, unspecified, not intractable, without status migrainosus; Z87.891 Personal history of nicotine dependence; Z79.899 Other long term (current) drug therapy
CPT/HCPCS: 71045; 80053; 84443; 84484; 85025; 93005

== ENCOUNTER 2022-03-03 13:38 | Emergency (ER) | payer OTHER ==
[2022-03-03 14:41] LABS: %Lymphocytes 18.2 % (21.0-51.0); %Neutrophils 71.6 % (42.0-75.0); Hemoglobin 11.2 g/dL (12.0-16.0); Manual Diff?? NO; Mean Corpuscular HGB CONC 29.7 g/dL (32.0-36.0); Mean Corpuscular Hemoglobin 24.3 pg (27.0-31.0); Mean Corpuscular Volume 81.7 fL (78.0-98.0); Mean Platelet Volume 6.7 fL (7.4-10.4); Platelet Count 461 thou/uL (130-400); RBC Distribution Width 15.9 % (11.5-14.5); Red Blood Cell (RBC) Count 4.61 mill/uL (4.20-5.40); White Blood Cell (WBC) Count 8.6 thou/uL (4.8-10.8)
[2022-03-03 14:42] LABS: %Basophils 0.4 % (0.0-1.0); %Eosinophils 1.9 % (0.0-10.0); %Monocytes 7.9 % (0.0-10.0)
[2022-03-03 14:49] LABS: #Eosinphils 0.2 thou/uL (0.0-0.7); #Lymphocytes 1.6 thou/uL (1.20-3.40); #Monocytes 0.7 thou/uL (0.11-0.59); #Neutrophils 6.2 thou/uL (1.40-6.50)
[2022-03-03 14:50] LABS: Anisocytosis SLIGHT = 6-15 cells (100X) (0-5/hpf); Platelet Morphology Comment Appears Adequate
[2022-03-03 14:51] LABS: ALT (SGPT) 18 U/L (8-55); AST (SGOT) 12 U/L (5-34); Albumin 3.6 g/dL (3.5-5.0); Alkaline Phosphatase 92 U/L (40-110); Anion Gap 15 mmol/L (10-20); BUN (Urea Nitrogen) 10 mg/dL (7.0-18.7); Bilirubin, Total 0.4 mg/dL (0.2-1.2); Calc. Creatinine Clearance 0 mL/min (70-130); Carbon Dioxide 25 mmol/L (22-29); Chloride 106 mmol/L (98-107); Estimated GFR 77; Glucose 82 mg/dL (70-105); Protein, Total 7.6 g/dL (6.0-8.3); Sodium 142 mmol/L (136-145)
[2022-03-03 15:19] LABS: Bilirubin Negative (Negative); Blood, Urine Large (Negative); Clarity Cloudy (Clear); Glucose, Urine (Dipstick) Negative (Negative); Ketone, Urine Trace mg/dL (Negative); Leukocyte Small (Negative); Nitrite Negative (Negative); Protein, Urine (Dipstick) 100 mg/dL (Neg-Trace); Specific Gravity, Urine 1.025 (1.005-1.030)
[2022-03-03 15:25] LABS: Bacteria/HPF 2+ HPF (None Seen)
[2022-03-03 15:26] LABS: Amphetamine Not Detected (NotDetected); Barbiturates Screen Not Detected (NotDetected); Benzodiazepine Screen Not Detected (NotDetected); Cocaine Metabolite Screen Not Detected (NotDetected); Medtox Control Line Valid? VALID (VALID); Methadone Not Detected (NotDetected); Methamphetamine Not Detected (NotDetected); Opiate Screen Not Detected (NotDetected); Oxycodone Screen Not Detected (NotDetected); Phencyclidine (PCP) Not Detected (NotDetected); THC/Cannabinoid Screen Not Detected (NotDetected); Tricyclic Screen Not Detected (NotDetected)
[2022-03-03] MEDS ORDERED: Morphine 4 MG/ML VIAL ONE (15:31)
[2022-03-03] MEDS ORDERED: Ondansetron ODT 4 MG TAB ONE (15:56)
== END 2022-03-03 15:55 | disposition home or self-care (01) ==
LOC: NAV ERS 13:38
DX: F41.1 Generalized anxiety disorder (principal); R11.0 Nausea; T45.4X5A Adverse effect of iron and its compounds, initial encounter; K21.9 Gastro-esophageal reflux disease without esophagitis; Z87.891 Personal history of nicotine dependence; Z79.899 Other long term (current) drug therapy
CPT/HCPCS: 71045; 80053; 80306; 81003; 81015; 84443; 84484; 85025; 93005; J2270; Q0162

== ENCOUNTER 2022-06-10 14:52 | Emergency (ER) | payer OTHER | END 2022-06-10 15:55 | disposition home or self-care (01) | LOC: NAV ERS 14:52 | DX: K02.9 Dental caries, unspecified (principal); M26.601 Right temporomandibular joint disorder, unspecified; K21.9 Gastro-esophageal reflux disease without esophagitis; Z79.899 Other long term (current) drug therapy; J45.909 Unspecified asthma, uncomplicated; Z87.891 Personal history of nicotine dependence | CPT/HCPCS: 99282 ==

== ENCOUNTER 2022-09-23 10:20 | Emergency (ER) | payer OTHER ==
[2022-09-23] MEDS ORDERED: Ibuprofen 200 MG TAB ONE (10:41)
[2022-09-23 17:08] LABS: MONO NEGATIVE CONTROL ZONE White (Negative) (White); MONO POSITIVE CONTROL Pink Line (Positive) (PINK/RED); Mononucleosis NEGATIVE (NEGATIVE)
== END 2022-09-23 11:50 | disposition home or self-care (01) ==
LOC: NAV ERS 10:20
DX: J02.9 Acute pharyngitis, unspecified (principal); I10 Essential (primary) hypertension
CPT/HCPCS: 86308; 87081; 87430; 99283

== ENCOUNTER 2023-01-25 17:03 | Emergency (ER) | payer OTHER ==
[2023-01-25] MEDS ORDERED: Lidocaine Viscous Sol 2% 15 ml UD Cup ONE (17:31)
[2023-01-25] MEDS ORDERED: Sucralfate 1 GM TAB ONE (17:31)
[2023-01-25] MEDS ORDERED: Mag-Al Plus 1200 MG/1200 MG/120 MG/30 ML UDCUP ONE (17:31)
[2023-01-25] MEDS ORDERED: Ondansetron ODT 4 MG TAB ONE (17:31)
== END 2023-01-25 17:58 | disposition home or self-care (01) ==
LOC: NAV ERS 17:03
DX: K21.00 Gastro-esophageal reflux disease with esophagitis, without bleeding (principal); Z87.891 Personal history of nicotine dependence
CPT/HCPCS: 99283; Q0162

== ENCOUNTER 2023-04-15 17:36 | Emergency (ER) | payer OTHER | END 2023-04-15 19:05 | disposition home or self-care (01) | LOC: NAV ERS 17:36 | DX: I10 Essential (primary) hypertension (principal); R00.2 Palpitations; J45.909 Unspecified asthma, uncomplicated; Z79.899 Other long term (current) drug therapy; Z87.891 Personal history of nicotine dependence ==

== ENCOUNTER 2023-05-06 14:22 | Emergency (ER) | payer OTHER | END 2023-05-06 16:12 | disposition home or self-care (01) | LOC: NAV ERS 14:22 | DX: M54.50 Low back pain, unspecified (principal); E66.01 Morbid (severe) obesity due to excess calories; K21.9 Gastro-esophageal reflux disease without esophagitis; J45.909 Unspecified asthma, uncomplicated; Z79.899 Other long term (current) drug therapy; Z87.891 Personal history of nicotine dependence | CPT/HCPCS: 99283 ==

== ENCOUNTER 2023-08-23 15:12 | Emergency (ER) | payer OTHER | END 2023-08-23 15:56 | disposition home or self-care (01) | LOC: NAV ERS 15:12 | DX: R53.83 Other fatigue (principal); J45.909 Unspecified asthma, uncomplicated; Z79.899 Other long term (current) drug therapy; Z87.891 Personal history of nicotine dependence | CPT/HCPCS: 99284 ==

== ENCOUNTER 2023-11-04 16:47 | Emergency (ER) | payer OTHER ==
[2023-11-04] MEDS ORDERED: Clindamycin 150 MG CAP ONE (17:24)
[2023-11-04] MEDS ORDERED: Acetaminophen 500 MG TAB ONE (17:24)
== END 2023-11-04 17:40 | disposition home or self-care (01) ==
LOC: NAV ERS 16:47
DX: K02.9 Dental caries, unspecified (principal); J45.909 Unspecified asthma, uncomplicated; Z79.899 Other long term (current) drug therapy; Z87.891 Personal history of nicotine dependence
CPT/HCPCS: 99282

== ENCOUNTER 2023-11-22 11:13 | Emergency (ER) | payer OTHER ==
[2023-11-22] MEDS ORDERED: Acetaminophen 500 MG TAB ONE (11:29)
[2023-11-22] MEDS ORDERED: Dexamethasone 4 mg/ml Vial ONE (11:29)
== END 2023-11-22 11:47 | disposition home or self-care (01) ==
LOC: NAV ERS 11:13
DX: K02.9 Dental caries, unspecified (principal); J45.909 Unspecified asthma, uncomplicated; Z79.899 Other long term (current) drug therapy; Z87.891 Personal history of nicotine dependence
CPT/HCPCS: 96372; 99282; J1100

== ENCOUNTER 2024-07-04 22:08 | Emergency (ER) | payer OTHER ==
[2024-07-04] MEDS ORDERED: AMOXicillin 250 MG CAP ONE (22:46)
== END 2024-07-04 22:56 | disposition home or self-care (01) ==
LOC: NAV ERS 22:08
DX: K08.89 Other specified disorders of teeth and supporting structures (principal); Z87.891 Personal history of nicotine dependence
CPT/HCPCS: 99282

== ENCOUNTER 2025-03-16 15:28 | Emergency (ER) | payer OTHER ==
[2025-03-16] MEDS ORDERED: Ibuprofen 800 MG TAB ONE (16:00)
== END 2025-03-16 16:14 | disposition home or self-care (01) ==
LOC: NAV ERS 15:28
DX: K08.89 Other specified disorders of teeth and supporting structures (principal); K02.9 Dental caries, unspecified; J45.909 Unspecified asthma, uncomplicated; K21.9 Gastro-esophageal reflux disease without esophagitis; Z87.891 Personal history of nicotine dependence; Z79.51 Long term (current) use of inhaled steroids; Z79.899 Other long term (current) drug therapy
CPT/HCPCS: 99282; Q0162

== ENCOUNTER 2025-06-13 11:52 | Emergency (ER) | payer OTHER | END 2025-06-13 12:25 | disposition home or self-care (01) | LOC: NAV ERS 11:52 | DX: K08.89 Other specified disorders of teeth and supporting structures (principal); J45.901 Unspecified asthma with (acute) exacerbation; Z79.51 Long term (current) use of inhaled steroids; Z87.891 Personal history of nicotine dependence | CPT/HCPCS: 99282 ==